=== PATIENT | male | born 1945 | race Caucasian/White ===

== ENCOUNTER → 2016-10-24 | Outpatient (CLI) | payer MEDICARE, OTHER ==
--- NOTE | 2016-10-25 11:34 | CARD ---
APPROVED REPORT INDICATION Chest Pain Reason : Patient complained of pain PROCEDURE The patient underwent an exercise Stress Test using the Alexei protocol. Blood pressure, heart rate, a nd EKG were monitored. An Echocardiogram was performed by aircraft launch and recovery technician in four stages in quad fashion. At peak stress four se lected images were obtained and placed side by side with resting images for comparison. STRESS ECHO FINDINGS The resting Echocardiogram showed normal left ventricular contractility with an estimated Ejection Fr action of about 60 %. Normal augmentation of myocardial wall segments using a 16 segment model. Test Type: Exercise Stress Nurse/Tech: Kaci Kiser R.N. Test Indications: palpitations Cardiac History and Allergies: high chol Medications: chol meds Resting ECG: sr Resting Heart Rate: 80 bpm Resting Blood Pressure: 148/95mmHg Pretest Chest Pain: No chest pain Nurse/Tech Notes lungs cta, heart tones regular, good radial pulse Stress Symptoms No chest pain or symptoms. POST EXERCISE Reason for Termination: Reached target heart rate Target HR: No Max HR: 160 bpm 107% of Maximum Predicted HR: 150 bpm Exercise duration: 6:34 min:sec, 3 Stage Exercise capacity: 7.0METs Max Blood Pressure: 174/82mmHg Blood Pressure response to exercise: Normal blood pressure response during stress. Heart Rate response to exercise: normal Chest Pain: No. Arrhythmia: No. ST Change: Yes. 1mm non-specific horizontal/upsloping ST depression noted in the inferior leads, reso lved in recovery. INTERPRETATION Stress EKG Conclusion: Negative stress EKG. Preliminary Notification Critical Value: No <Conclusion> Negative stress EKG. Normal wall motion and function at rest with an EF of 55% Normal wall motion and function and peak stress with an EF > 70% Low risk study
== END | disposition home or self-care (01) ==
LOC: ECHO 14:42
PROVIDERS: ATTEND Internal Medicine Cardiovascular Disease
DX: R07.89 Other chest pain (principal)
CPT/HCPCS: 93017; 93350